=== PATIENT | female | born 1950 | race Caucasian/White ===

== ENCOUNTER 2019-12-08 16:59 | Emergency (ER) | payer MEDICARE ==
[~2019-12-08] VITALS: Ht 170.1 cm; Wt 88.5 kg
[~2019-12-08 16:59] MED LIST: ANTIVERT/2525 MG PO; AVELOX400 MG PO; BIAXIN500 MG PO; GLYBURIDE5 MG PO; JANUVIA100 MG PO; KEFLEX500 MG PO; LEVOTHYROXIN0.025 MG PO; METFORMIN1000 MG PO; MOTRIN800 MG PO; OXYGEN NAS; PROVENTIL0.09 MG/AC IH; TOBRADEX 0.1%-0.5 ML OPH; ZITHROMAX250 MG PO; ZOCOR80 MG PO
[2019-12-08 17:39] LABS: BASO # 0.1 10*3/uL (0.0-0.1); BASO % 1.1 % (0.0-1.0); EOS # 0.1 10*3/uL (0.0-0.4); EOS % 1.7 % (1.0-4.0); HEMATOCRIT 48.2 % (37.0-47.0); HEMOGLOBIN 13.7 g/dl (12.0-16.0); LYMPH # 2.2 10*3/uL (1.3-4.4); MEAN CELL VOLUME 73.9 fl (81.0-99.0); MEAN CORPUSCULAR HGB CONC 28.4 g/dl (33.0-37.0); MEAN PLATELET VOLUME 11.3 fl (9.6-12.3); MONO # 0.5 10*3/uL (0.1-1.0); MONO % 7.7 % (3.0-9.0); NEUT # 3.4 10*3/uL (2.3-7.9); NEUT % 52.9 % (47.0-73.0); PLATELET COUNT AUTOMATED 148 10*3/uL (130-400); RED BLOOD COUNT 6.52 10*6/uL (4.10-5.10); RED CELL DISTRI WIDTH 17.5 % (0-14.5); WHITE BLOOD COUNT 6.3 10*3/uL (4.8-10.8)
[2019-12-08 17:50] LABS: ACT PARTIAL THROMBO TIME 25.2 SECONDS (20.0-32.1)
[2019-12-08 17:59] LABS: ALBUMIN 3.7 gm/dl (3.1-4.5); ALKALINE PHOSPHATASE 82 U/L (45-117); BUN 14 mg/dl (7-24); CHLORIDE 104 mmol/L (98-107); CREATININE 1.08 mg/dL (0.55-1.02); POTASSIUM 3.7 mmol/L (3.5-5.1); SGOT/AST 14 IU/L (3-35); SGPT/ALT 27 U/L (12-78); SODIUM 137 mmol/L (136-145); TOTAL PROTEIN 8.4 gm/dL (6.4-8.2)
[2019-12-08 18:30] LABS: TROPONIN I < 0.015 ng/ml (<0.045)
[2019-12-08 19:31] LABS: ABG BASE EXCESS -4.3 mmol/L (-2.0-2.0); ARTERIAL BLOOD GAS PH 7.224 (7.35-7.45)
[2019-12-08 23:17] LABS: BILIRUBIN NEGATIVE (NEGATIVE); BLOOD 2+ (NEGATIVE); CLARITY SL CLOUDY (CLEAR); COLOR YELLOW (YELLOW); GLUCOSE 3+ (NEGATIVE); KETONE 2+ (NEGATIVE); LEUKO ESTERASE NEGATIVE (NEGATIVE); NITRITE NEGATIVE (NEGATIVE); UROBILINOGEN 0.2 E.U./dl (0.2-1.0)
[2019-12-08 23:21] LABS: RBC 21-30 rbc/hpf (0-2)
== END 2019-12-09 00:31 | disposition short-term general hospital (02) ==
LOC: ED 16:59
PROVIDERS: Emergency Medicine
DX: G93.40 Encephalopathy, unspecified (principal); J96.92 Respiratory failure, unspecified with hypercapnia; R41.82 Altered mental status, unspecified; E66.01 Morbid (severe) obesity due to excess calories; E11.9 Type 2 diabetes mellitus without complications; J44.9 Chronic obstructive pulmonary disease, unspecified; I50.9 Heart failure, unspecified; E07.9 Disorder of thyroid, unspecified; Z91.041 Radiographic dye allergy status; Z88.8 Allergy status to other drugs, medicaments and biological substances; Z79.899 Other long term (current) drug therapy; Z90.710 Acquired absence of both cervix and uterus

== ENCOUNTER → 2020-06-19 | Outpatient (CLI) | payer MEDICARE, OTHER | END | disposition home or self-care (01) | LOC: COVID19 00:45 | DX: U07.1 COVID-19 (principal); R05 Cough ==

== ENCOUNTER 2021-05-19 23:05 | Emergency (ER) | payer MEDICARE, OTHER ==
[~2021-05-19] VITALS: Ht 170.1 cm; Wt 106.1 kg
[2021-05-20 01:20] LABS: BASO # 0.1 10*3/uL (0.0-0.1); BASO % 1.3 % (0.0-1.0); EOS # 0.1 10*3/uL (0.0-0.4); EOS % 1.3 % (1.0-4.0); HEMATOCRIT 36.8 % (37.0-47.0); LYMPH # 0.6 10*3/uL (1.3-4.4); LYMPH % 13.7 % (27.0-41.0); MEAN CELL VOLUME 74.3 fl (81.0-99.0); MEAN CORPUSCULAR HGB 21.6 pg (27.0-31.0); MEAN CORPUSCULAR HGB CONC 29.1 g/dl (33.0-37.0); MONO # 0.3 10*3/uL (0.1-1.0); MONO % 6.4 % (3.0-9.0); NEUT # 3.6 10*3/uL (2.3-7.9); NEUT % 77.1 % (47.0-73.0); PLATELET COUNT AUTOMATED 124 10*3/uL (130-400); RED BLOOD COUNT 4.95 10*6/uL (4.10-5.10); RED CELL DISTRI WIDTH 18.3 % (0-14.5); WHITE BLOOD COUNT 4.7 10*3/uL (4.8-10.8)
[2021-05-20 01:34] LABS: ALBUMIN 2.5 gm/dl (3.1-4.5); ALKALINE PHOSPHATASE 42 U/L (45-117); BUN 12 mg/dl (7-24); CHLORIDE 105 mmol/L (98-107); POTASSIUM 3.4 mmol/L (3.5-5.1); SGOT/AST 5 IU/L (3-35); SGPT/ALT 8 U/L (12-78); SODIUM 139 mmol/L (136-145); TOTAL PROTEIN 5.6 gm/dL (6.4-8.2)
[2021-05-20] MEDS ORDERED: K-TAB20 MEQ PO (07:54)
[2021-05-20] MEDS ORDERED: LASIX40 MG PO (07:54)
== END 2021-05-20 08:10 | disposition home or self-care (01) ==
LOC: ED 23:05
PROVIDERS: Emergency Medicine
DX: R60.0 Localized edema (principal); Z88.8 Allergy status to other drugs, medicaments and biological substances; Z79.899 Other long term (current) drug therapy

== ENCOUNTER 2021-07-22 13:42 | Emergency (ER) | payer MEDICARE, OTHER ==
[~2021-07-22] VITALS: Ht 170.1 cm; Wt 91.2 kg
[~2021-07-22 13:42] MED LIST changes: +K-TAB20 MEQ PO; +LASIX40 MG PO
== END 2021-07-22 19:40 | disposition home or self-care (01) ==
LOC: ED 13:42
DX: S61.412A Laceration without foreign body of left hand, initial encounter (principal); W26.8XXA Contact with other sharp object(s), not elsewhere classified, initial encounter; Y93.89 Activity, other specified; Y92.89 Other specified places as the place of occurrence of the external cause; Y99.8 Other external cause status

== ENCOUNTER 2022-05-09 17:36 | Emergency (ER) | payer MEDICARE, OTHER ==
[~2022-05-09] VITALS: Ht 170.1 cm; Wt 93.0 kg
[2022-05-09 18:41] LABS: BASO % 0.8 % (0.0-1.0); EOS % 0.8 % (1.0-4.0); LYMPH # 0.4 10*3/uL (1.3-4.4); LYMPH % 7.9 % (27.0-41.0); MEAN CELL VOLUME 77.8 fl (81.0-99.0); MEAN CORPUSCULAR HGB 24.7 pg (27.0-31.0); MEAN CORPUSCULAR HGB CONC 31.7 g/dl (33.0-37.0); MONO # 0.5 10*3/uL (0.1-1.0); MONO % 8.9 % (3.0-9.0); NEUT # 4.2 10*3/uL (2.3-7.9); NEUT % 81.2 % (47.0-73.0); NUCLEATED RED BLOOD CELL 0.4 % (0.0-0.0); PLATELET COUNT AUTOMATED 163 10*3/uL (130-400); RED CELL DISTRI WIDTH 18.9 % (0-14.5); WHITE BLOOD COUNT 5.2 10*3/uL (4.8-10.8)
[2022-05-09 18:56] LABS: ALKALINE PHOSPHATASE 53 U/L (45-117); BUN 20 mg/dl (7-24); CHLORIDE 101 mmol/L (98-107); CREATININE 1.11 mg/dL (0.55-1.02); SGOT/AST 22 IU/L (3-35); SGPT/ALT 16 U/L (12-78); SODIUM 138 mmol/L (136-145); TOTAL PROTEIN 4.8 gm/dL (6.4-8.2)
== END 2022-05-09 20:01 | disposition home or self-care (01) ==
LOC: ED 17:36
PROVIDERS: Nurse Practitioner Family
DX: R60.0 Localized edema (principal); E87.6 Hypokalemia; E11.65 Type 2 diabetes mellitus with hyperglycemia; I50.9 Heart failure, unspecified; J44.9 Chronic obstructive pulmonary disease, unspecified

== ENCOUNTER 2022-06-27 16:02 | Emergency (ER) | payer OTHER, MEDICARE ==
[~2022-06-27] VITALS: Ht 170.1 cm; Wt 88.5 kg
[2022-06-27 17:14] LABS: BASO % 0.6 % (0.0-1.0); EOS # 0.1 10*3/uL (0.0-0.4); EOS % 1.1 % (1.0-4.0); HEMATOCRIT 35.2 % (37.0-47.0); LYMPH # 0.5 10*3/uL (1.3-4.4); LYMPH % 7.2 % (27.0-41.0); MEAN CELL VOLUME 78.6 fl (81.0-99.0); MEAN CORPUSCULAR HGB 24.8 pg (27.0-31.0); MEAN CORPUSCULAR HGB CONC 31.5 g/dl (33.0-37.0); MEAN PLATELET VOLUME 11.5 fl (9.6-12.3); MONO # 0.4 10*3/uL (0.1-1.0); MONO % 6.4 % (3.0-9.0); NEUT # 5.5 10*3/uL (2.3-7.9); NEUT % 84.1 % (47.0-73.0); NUCLEATED RED BLOOD CELL 0.5 % (0.0-0.0); PLATELET COUNT AUTOMATED 218 10*3/uL (130-400); RED BLOOD COUNT 4.48 10*6/uL (4.10-5.10); RED CELL DISTRI WIDTH 19.9 % (0-14.5); WHITE BLOOD COUNT 6.6 10*3/uL (4.8-10.8)
[2022-06-27 17:31] LABS: ACT PARTIAL THROMBO TIME 24.4 SECONDS (20.0-32.1); INTERNATIONAL NORM RATIO 1.1 (2.0-3.5)
[2022-06-27 17:45] LABS: ALKALINE PHOSPHATASE 47 U/L (45-117); BUN 16 mg/dl (7-24); CHLORIDE 109 mmol/L (98-107); CREATININE 0.73 mg/dL (0.55-1.02); LIPASE 113 U/L (73-393); POTASSIUM 3.3 mmol/L (3.5-5.1); SGOT/AST 21 IU/L (3-35); SGPT/ALT 14 U/L (12-78); SODIUM 145 mmol/L (136-145); TOTAL PROTEIN 4.8 gm/dL (6.4-8.2)
[2022-06-27 18:59] LABS: BILIRUBIN Negative (Negative); BLOOD Negative (Negative); CLARITY Clear (Clear); COLOR Yellow (Yellow); GLUCOSE Negative (Negative); KETONE Negative (Negative); LEUKO ESTERASE Trace (Negative); NITRITE Negative (Negative); PH 6.5 (4.5-8.0); SPECIFIC GRAVITY <= 1.005 (1.001-1.030); UROBILINOGEN 0.2 E.U./dl (0.0-1.0)
[2022-06-27 19:15] LABS: BACTERIA 1+
[2022-06-27] MEDS ORDERED: NAPROXEN250 MG PO (20:41)
[2022-06-27] MEDS ORDERED: METHOCARBAMOL500 M1 PO (20:41)
== END 2022-06-27 21:28 | disposition home or self-care (01) ==
LOC: ED 16:02
PROVIDERS: Emergency Medicine
DX: S81.012A Laceration without foreign body, left knee, initial encounter (principal); R18.8 Other ascites; E87.6 Hypokalemia; D50.9 Iron deficiency anemia, unspecified; J90 Pleural effusion, not elsewhere classified; I31.3 Pericardial effusion (noninflammatory); E43 Unspecified severe protein-calorie malnutrition; J44.9 Chronic obstructive pulmonary disease, unspecified; E11.9 Type 2 diabetes mellitus without complications; Z79.899 Other long term (current) drug therapy; Z90.710 Acquired absence of both cervix and uterus; V49.9XXA Car occupant (driver) (passenger) injured in unspecified traffic accident, initial encounter; Y93.89 Activity, other specified; Y92.89 Other specified places as the place of occurrence of the external cause; Y99.8 Other external cause status

== ENCOUNTER 2022-12-31 17:31 | Inpatient (IN) | payer MEDICARE, OTHER ==
[~2022-12-31] VITALS: Ht 170.1 cm; Wt 101.7 kg
[~2022-12-31 17:31] MED LIST changes: +ALDACTONE25 MG PO; +FERROUS SULFAT325 MG PO; +FUROSEMIDE40 MG PO; +GABAPENTIN100 M2 PO; +LANTUS SOL100 UNIT/1 SC; +LIPITOR40 MG PO; +Lantus SC; +METHOCARBAMOL500 M1 PO; +NAPROXEN250 MG PO; +NATURE'S BLEND F1 MG PO; +NEURONTIN100 MG PO; +PROTONIX40 MG PO; +VITAMIN D350 MC2 PO; +XARE20MG PO; +XELODA500 MG PO
[2022-12-31 17:46] VITALS: BP 98/40
[2022-12-31 18:04] LABS: BASO # 0.1 10*3/uL (0.0-0.1); BASO % 1.2 % (0.0-1.0); EOS # 0.1 10*3/uL (0.0-0.4); EOS % 1.3 % (1.0-4.0); HEMATOCRIT 36.6 % (37.0-47.0); LYMPH # 0.7 10*3/uL (1.3-4.4); LYMPH % 10.3 % (27.0-41.0); MEAN CELL VOLUME 76.9 fl (81.0-99.0); MEAN CORPUSCULAR HGB 23.5 pg (27.0-31.0); MEAN CORPUSCULAR HGB CONC 30.6 g/dl (33.0-37.0); MEAN PLATELET VOLUME 10.5 fl (9.6-12.3); MONO # 0.5 10*3/uL (0.1-1.0); MONO % 7.7 % (3.0-9.0); NEUT # 5.5 10*3/uL (2.3-7.9); NEUT % 78.8 % (47.0-73.0); NUCLEATED RED BLOOD CELL 0.6 % (0.0-0.0); PLATELET COUNT AUTOMATED 228 10*3/uL (130-400); RED BLOOD COUNT 4.76 10*6/uL (4.10-5.10); RED CELL DISTRI WIDTH 22.3 % (0-14.5); WHITE BLOOD COUNT 6.9 10*3/uL (4.8-10.8)
[2022-12-31 18:17] LABS: ACT PARTIAL THROMBO TIME 25.4 SECONDS (20.0-32.1); INTERNATIONAL NORM RATIO 1.2 (2.0-3.5); LIPASE 27 U/L (12-53)
[2022-12-31 18:19] LABS: POTASSIUM 3.4 mmol/L (3.4-5.1); TOTAL PROTEIN 4.7 gm/dL (6.0-8.0)
[2022-12-31 19:29] VITALS: BP 108/39
[2022-12-31 19:39] LABS: BILIRUBIN Negative (Negative); BLOOD Negative (Negative); CLARITY Clear (Clear); COLOR Yellow (Yellow); GLUCOSE Negative (Negative); KETONE Negative (Negative); LEUKO ESTERASE 2+ (Negative); NITRITE Negative (Negative); PH 5.5 (4.5-8.0)
[2022-12-31 19:48] LABS: BACTERIA 3+; WBC 31-40 wbc/hpf (0-5)
[2022-12-31] MEDS ORDERED: LEVOTHYROXINE175 MC1 PO (19:57)
[2022-12-31 20:46] VITALS: BP 111/48
[2022-12-31 21:00] VITALS: BP 100/41
[2023-01-01] VITALS: BP 101/44
[2023-01-01 06:15] LABS: BASO # 0.1 10*3/uL (0.0-0.1); BASO % 1.2 % (0.0-1.0); EOS # 0.1 10*3/uL (0.0-0.4); EOS % 2.1 % (1.0-4.0); HEMATOCRIT 36.7 % (37.0-47.0); LYMPH # 0.7 10*3/uL (1.3-4.4); LYMPH % 10.9 % (27.0-41.0); MEAN CELL VOLUME 78.3 fl (81.0-99.0); MEAN CORPUSCULAR HGB 23.7 pg (27.0-31.0); MEAN CORPUSCULAR HGB CONC 30.2 g/dl (33.0-37.0); MEAN PLATELET VOLUME 10.7 fl (9.6-12.3); MONO # 0.6 10*3/uL (0.1-1.0); MONO % 9.2 % (3.0-9.0); NEUT % 75.5 % (47.0-73.0); NUCLEATED RED BLOOD CELL 0.1 10*3/uL (0.0-0.0); NUCLEATED RED BLOOD CELL 0.8 % (0.0-0.0); PLATELET COUNT AUTOMATED 205 10*3/uL (130-400); RED BLOOD COUNT 4.69 10*6/uL (4.10-5.10); RED CELL DISTRI WIDTH 22.3 % (0-14.5); WHITE BLOOD COUNT 6.6 10*3/uL (4.8-10.8)
[2023-01-01 06:25] LABS: FREE T4 1.03 ng/dl (0.89-1.76); POTASSIUM 3.7 mmol/L (3.4-5.1); THYROID STIM HORMONE (HS) 6.924 uIU/ml (0.550-4.780); TOTAL PROTEIN 4.7 gm/dL (6.0-8.0)
[2023-01-01 08:00] VITALS: BP 108/74
[2023-01-01 08:07] LABS: VITAMIN D, 25-HYDROXY 9.5 ng/mL (30-100)
[2023-01-01 12:00] VITALS: BP 102/52
[2023-01-01 16:00] VITALS: BP 97/42
[2023-01-01 20:00] VITALS: BP 122/45
[2023-01-02] VITALS: BP 122/48
[2023-01-02 08:00] VITALS: BP 101/46
[2023-01-02 08:31] LABS: POTASSIUM 3.9 mmol/L (3.4-5.1)
[2023-01-02 12:00] VITALS: BP 109/56
[2023-01-02 16:00] VITALS: BP 106/42
[2023-01-02 20:00] VITALS: BP 108/47
[2023-01-03] VITALS: BP 120/54
[2023-01-03 06:21] LABS: HEMATOCRIT 36.1 % (37.0-47.0); MEAN CELL VOLUME 79.3 fl (81.0-99.0); MEAN CORPUSCULAR HGB CONC 30.2 g/dl (33.0-37.0); MEAN PLATELET VOLUME 9.9 fl (9.6-12.3); NUCLEATED RED BLOOD CELL 0.1 10*3/uL (0.0-0.0); NUCLEATED RED BLOOD CELL 1.3 % (0.0-0.0); PLATELET COUNT AUTOMATED 189 10*3/uL (130-400); RED BLOOD COUNT 4.55 10*6/uL (4.10-5.10); RED CELL DISTRI WIDTH 22.5 % (0-14.5)
[2023-01-03 06:23] LABS: MANUAL DIFF REFLEX YES
[2023-01-03 06:35] LABS: BUN 20 mg/dl (9-23); CHLORIDE 105 mmol/L (98-107); POTASSIUM 4.2 mmol/L (3.4-5.1)
[2023-01-03 07:02] LABS: BASOPHILS 2 % (0-1); TOTAL CELLS COUNTED 100 #CELLS
[2023-01-03 07:03] LABS: MICROCYTOSIS SLIGHT; OVALOCYTES FEW; PLATELET SUFFICIENCY NORMAL (NORMAL); POLYCHROMASIA SLIGHT; SCHISTOCYTES FEW; TARGET CELLS FEW
[2023-01-03 08:00] VITALS: BP 97/49
[2023-01-03 12:00] VITALS: BP 106/40
[2023-01-03 16:00] VITALS: BP 109/58
[2023-01-03 18:28] VITALS: BP 120/56
[2023-01-03 19:42] LABS: BUN 20 mg/dl (9-23); CHLORIDE 101 mmol/L (98-107); POTASSIUM 4.1 mmol/L (3.4-5.1)
[2023-01-03 20:00] VITALS: BP 121/60
[2023-01-04] VITALS: BP 100/47
[2023-01-04 05:57] LABS: BUN 18 mg/dl (9-23); CHLORIDE 103 mmol/L (98-107); POTASSIUM 3.6 mmol/L (3.4-5.1)
[2023-01-04 08:00] VITALS: BP 106/70
[2023-01-04 12:00] VITALS: BP 103/59
[2023-01-04 16:00] VITALS: BP 104/62
[2023-01-04 20:00] VITALS: BP 98/40
[2023-01-05] VITALS: BP 102/45
[2023-01-05 06:23] LABS: BUN 18 mg/dl (9-23); CHLORIDE 102 mmol/L (98-107); POTASSIUM 3.7 mmol/L (3.4-5.1)
[2023-01-05 08:36] VITALS: BP 94/40
== END 2023-01-05 11:25 | disposition home or self-care (01) | DRG 291 ==
LOC: ED 17:31 → 4E 18:38 → EDHOLD 18:38 → 4E 20:06
PROVIDERS: Emergency Medicine; Internal Medicine; Student in an Organized Health Care Education/Training Program; ADMIT Family Medicine; ATTEND Family Medicine
DX: I50.33 Acute on chronic diastolic (congestive) heart failure (principal); E43 Unspecified severe protein-calorie malnutrition; N17.0 Acute kidney failure with tubular necrosis; I48.0 Paroxysmal atrial fibrillation; D50.9 Iron deficiency anemia, unspecified; E11.65 Type 2 diabetes mellitus with hyperglycemia; E83.42 Hypomagnesemia; E03.9 Hypothyroidism, unspecified; Z91.041 Radiographic dye allergy status; Z90.711 Acquired absence of uterus with remaining cervical stump; Z82.49 Family history of ischemic heart disease and other diseases of the circulatory system; Z85.05 Personal history of malignant neoplasm of liver; Z85.038 Personal history of other malignant neoplasm of large intestine; Z79.4 Long term (current) use of insulin; J44.9 Chronic obstructive pulmonary disease, unspecified

== ENCOUNTER 2023-05-29 18:10 | Emergency (ER) | payer MEDICARE, OTHER ==
[~2023-05-29] VITALS: Ht 162.5 cm; Wt 90.7 kg
[~2023-05-29 18:10] MED LIST changes: +KEFLEX 500 MG E2 CAP PO; +LEVOTHYROXINE175 MC1 PO
[2023-05-29 18:39] LABS: HEMATOCRIT 38.1 % (37.0-47.0); MEAN CELL VOLUME 71.2 fl (81.0-99.0); MEAN CORPUSCULAR HGB 21.3 pg (27.0-31.0); MEAN CORPUSCULAR HGB CONC 29.9 g/dl (33.0-37.0); MEAN PLATELET VOLUME 10.3 fl (9.6-12.3); NUCLEATED RED BLOOD CELL 0.4 10*3/uL (0.0-0.0); NUCLEATED RED BLOOD CELL 1.8 % (0.0-0.0); PLATELET COUNT AUTOMATED 379 10*3/uL (130-400); RED BLOOD COUNT 5.35 10*6/uL (4.10-5.10); RED CELL DISTRI WIDTH 17.4 % (0-14.5); WHITE BLOOD COUNT 20.3 10*3/uL (4.8-10.8)
[2023-05-29 18:48] LABS: MANUAL DIFF REFLEX YES
[2023-05-29 18:57] LABS: ACT PARTIAL THROMBO TIME 29.3 SECONDS (20.0-32.1); INTERNATIONAL NORM RATIO 1.2 (2.0-3.5)
[2023-05-29 19:04] LABS: POTASSIUM 4.9 mmol/L (3.4-5.1); TOTAL PROTEIN 4.4 gm/dL (6.0-8.0)
[2023-05-29 19:07] LABS: BURR CELLS MODERATE; TOTAL CELLS COUNTED 100 #CELLS
[2023-05-29 19:11] LABS: MICROCYTOSIS MODERATE
[2023-05-29 19:12] LABS: PLATELET SUFFICIENCY NORMAL (NORMAL); POLYCHROMASIA MODERATE; SCHISTOCYTES FEW
== END 2023-05-29 20:00 ==
LOC: ED 18:10
PROVIDERS: Nurse Practitioner Family
DX: I46.9 Cardiac arrest, cause unspecified (principal); I11.0 Hypertensive heart disease with heart failure; E11.9 Type 2 diabetes mellitus without complications; I48.91 Unspecified atrial fibrillation; R11.2 Nausea with vomiting, unspecified; Z91.041 Radiographic dye allergy status; Z88.8 Allergy status to other drugs, medicaments and biological substances; Z90.711 Acquired absence of uterus with remaining cervical stump; Z90.12 Acquired absence of left breast and nipple; Z98.890 Other specified postprocedural states